=== PATIENT | female | born 1995 | race Two or more races ===

== ENCOUNTER 2020-05-28 15:58 | Emergency (ER) | payer MEDICAID ==
--- NOTE | 2020-05-28 16:36 | EDM.PDOC ---
ED HPI GENERAL MEDICAL PROBLEM - General Chief Complaint: Lower Extremity Injury/Pain Stated Complaint: RT KNEE PAIN Time Seen by Provider: 05/28/20 16:34 Source of Information: Reports: Patient History Limitations: Reports: No Limitations - History of Present Illness INITIAL COMMENTS - FREE TEXT/NARRATIVE: pt fell from a fairly high deck last nite and landed on the knee and twisted it. She is having alot of pain in the inner aspect of the knee. The león is swollen and she is not able tro weight bear on the knee. Onset: Other ( incident happened last nite. o) Duration: Hour(s): Location: Reports: Lower Extremity, Right Associated Symptoms: Reports: No Other Symptoms Right Knee Pain Score (Numeric/FACES): 3 - Related Data Allergies Allergy/AdvReac Type Severity Reaction Status Date / Time No Known Allergies Allergy Verified 05/28/20 16:33 Home Meds: Home Meds NK [No Known Home Meds] 05/28/20 [History] Review of Systems - Review of Systems Review Of Systems: See Below Constitutional: Reports: No Symptoms Eyes: Reports: No Symptoms Ears: Reports: No Symptoms Nose: Reports: No Symptoms Mouth/Throat: Reports: No Symptoms Respiratory: Reports: No Symptoms Cardiovascular: Reports: No Symptoms GI/Abdominal: Reports: No Symptoms Genitourinary: Reports: No Symptoms Musculoskeletal: Reports: Other (pain in the rt knee. ) ED EXAM, GENERAL - Physical Exam Exam: See Below Free Text/Narrative:: pt arrived with pain and swelling in the rt knee. She fell off of the deck last nite. She thinks the deck was at least 8 feet. Exam Limited By: No Limitations General Appearance: Alert, Anxious, Mild Distress Ears: Normal TMs Nose: Normal Inspection Throat/Mouth: Normal Inspection Head: Atraumatic Neck: Normal Inspection Respiratory/Chest: No Respiratory Distress Cardiovascular: Regular Rate, Rhythm Extremities: Other ( rt knee is quite swollen, very tender in the medial aspect of the knee. She has alot of pain with weight bearing. ) Course - Vital Signs Last Recorded V/S: Last Vital Signs Temp 37.2 C 05/28/20 16:36 Pulse 75 05/28/20 16:36 Resp 16 05/28/20 16:36 BP 119/55 L 05/28/20 16:36 Pulse Ox 97 05/28/20 16:36 - Orders/Labs/Meds Orders: Active Orders 24 hr Category Date Time Status Knee Min 4V Rt [CR] Stat Exams 05/28/20 16:31 Taken - Re-Assessments/Exams Free Text/Narrative Re-Assessment/Exam: 05/28/20 17:08 xray of the knee shows no fractures. A knee imoblizer was applied and she was fit for crutches. Departure - Departure Time of Disposition: 17:02 Disposition: Home, Self-Care 01 Condition: Fair Clinical Impression: Sprain of right knee - Discharge Information Referrals: PCP,None [Primary Care Provider] - Forms: ED Department Discharge Care Plan Goals: ice to the rt knee, elevate when sitting, knee imoblizer, crutches, appt with ortho on thur. Motrin 600mg qid for pain norco 5/325 q6h prn for severe pain. crutches Sepsis Event Note (ED) - Focused Exam Vital Signs: Vital Signs Temp Pulse Resp BP Pulse Ox 05/28/20 16:36 37.2 C 75 16 119/55 L 97 05/28/20 16:33 37.2 C 75 16 119/55 L 97 - My Orders Last 24 Hours: My Active Orders 05/28/20 16:31 Knee Min 4V Rt [CR] Stat - Assessment/Plan Last 24 Hours: My Active Orders 05/28/20 16:31 Knee Min 4V Rt [CR] Stat
[2020-05-28] MEDS ORDERED: Acetaminophen/HYDROcodone 325-5 MG Tab PO ONE (17:09)
--- NOTE | 2020-05-29 10:30 | CR ---
Knee Min 4V Rt CLINICAL HISTORY: Pain, fall FINDINGS: No acute fracture or dislocation is noted. There are no osseous lesions. Articular surfaces are smooth Impression: Negative
== END 2020-05-28 17:42 | disposition home or self-care (01) ==
LOC: JP.ED 15:58
DX: S83.91XA Sprain of unspecified site of right knee, initial encounter (principal); X50.1XXA Overexertion from prolonged static or awkward postures, initial encounter
CPT/HCPCS: 73564-26-RT; 73564-RT; 99283

== ENCOUNTER 2020-10-14 15:15 | Emergency (ER) | payer OTHER, MEDICAID ==
[2020-10-14] MEDS ORDERED: Cyclobenzaprine 10 MG Tab PO ONE (15:42)
[2020-10-14] MEDS ORDERED: Ketorolac 60 MG/2 ML SDV IM ONE (15:42)
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
== END 2020-10-14 17:13 | disposition home or self-care (01) ==
LOC: JP.ED 15:15
DX: S82.51XA Displaced fracture of medial malleolus of right tibia, initial encounter for closed fracture (principal); M25.561 Pain in right knee; M25.551 Pain in right hip; E66.9 Obesity, unspecified; Z68.41 Body mass index [BMI] 40.0-44.9, adult; V57.5XXA Driver of pick-up truck or van injured in collision with fixed or stationary object in traffic accident, initial encounter
CPT/HCPCS: 29515; 73502; 73562; 73610; 96372; 99283; 99284; A9270; J1885